=== PATIENT | female | born 1975 | race Caucasian/White ===

== ENCOUNTER 2017-08-02 20:39 | Emergency (ER) | payer OTHER ==
[~2017-08-02] VITALS: Ht 154.9 cm; Wt 45.8 kg
[~2017-08-02 20:39] MED LIST: ATIVAN0.5 MG PO; HYDROCODON-ACE1 EAC7 PO; KEFLEX500 MG PO; MOTRIN600 MG PO; NAPROSYN375 MG PO; NOHOMEMEDS; PREFERA-OB P1 TABLET PO
[2017-08-02 23:42] VITALS: BP 132/88
== END 2017-08-02 23:42 | disposition home or self-care (01) ==
LOC: EME 20:39
PROC: 0SSQXZZ Reposition Left Toe Phalangeal Joint, External Approach (ICD-10-PCS; principal; 2017-08-02)
DX: S93.135A Subluxation of interphalangeal joint of left lesser toe(s), initial encounter (principal); W22.03XA Walked into furniture, initial encounter; Z88.0 Allergy status to penicillin; Z87.891 Personal history of nicotine dependence; Z88.1 Allergy status to other antibiotic agents
CPT/HCPCS: 73660; 99281; 99284